=== PATIENT | male | born 1955 | race Caucasian/White ===

== ENCOUNTER 2021-07-02 02:12 | Observation (INO) ==
[2021-07-02] MEDS ORDERED: Acetaminophen 325 MG TABLET PO PRN (08:52)
[2021-07-02] MEDS ORDERED: Ondansetron 4 MG/2 ML VIAL IVP PRN (08:52)
[2021-07-02] MEDS ORDERED: Melatonin 3 MG TABLET PO PRN (08:52)
[2021-07-02] MEDS ORDERED: Naloxone 0.4 MG/ML INJ IVP PRN (08:52)
[2021-07-02] MEDS ORDERED: Mag Hydrox/Al Hydrox/Simeth 30 ML UDC PO PRN (08:52)
[2021-07-02 09:45] LABS: Basophils % 0.4 %; Eosinophils # 0.1 K/mcL (0.0-0.6); Hemoglobin 16.4 g/dL (12.9-16.9); Immature Granulocytes % 0.4 % (0-4); Lymphocytes # 1.9 K/mcL (0.6-4.6); Lymphocytes % 16.5 %; Mean Corpuscular HGB Conc 34.9 g/dL (31.6-35.5); Mean Corpuscular Hemoglobin 32.2 pg (28.0-33.3); Mean Corpuscular Volume 92.3 fL (83.0-100.0); Mean Platelet Volume 9.9 fL (9.4-12.4); Monocytes # 0.9 K/mcL (0.0-1.3); Monocytes % 7.6 %; Neutrophils # 8.3 K/mcL (1.6-8.9); Platelet Count 199 K/mcL (140-400); Red Blood Count 5.09 M/mcL (4.19-5.50); Red Cell Distribution Width 13.3 % (11.5-14.5); Segmented Neutrophils % 74.1 %; White Blood Count 11.3 K/mcL (4.3-11.1)
[2021-07-02 09:55] LABS: INR 1.2; Prothrombin Time 12.9 Seconds (9.4-12.1)
[2021-07-02 09:58] LABS: Activated Partial Thrombo Time 32.5 Seconds (26.0-36.0)
[2021-07-02] MEDS ORDERED: Aspirin 325 MG TABLET PO ONE (10:01)
[2021-07-02] MEDS ORDERED: Perflutren Lipid Microsphere 1.3 ML in 0.9 % Sodium Chloride 8.7 ML IVP PRN (10:03)
[2021-07-02 10:12] LABS: BUN/Creatinine Ratio 20 (6-26); Blood Urea Nitrogen 18 mg/dL (8-23); Calcium 9.8 mg/dL (8.6-10.3); Carbon Dioxide 27 mEq/L (23-29); Chloride 101 mEq/L (98-107); Glucose 115 mg/dL (70-105); Osmolality,Calculated 287 (280-300); Potassium 4.1 mEq/L (3.5-5.1); Sodium 137 mEq/L (136-145); eGFR For African Americans > 60 (> 60); eGFR For Non-African Americans > 60 (> 60)
[2021-07-02 10:16] LABS: Chol/HDL Ratio 4.9 (0-4.9); Cholesterol 190 mg/dL (< 200); HDL Cholesterol 39 mg/dL (40-59); LDL Cholesterol,Calculated 125 mg/dL (< 100); Magnesium 2.2 mg/dL (1.6-2.6); Phosphorous 3.4 mg/dL (2.7-4.5); Triglycerides 130 mg/dL (< 150); Troponin I < 0.03 ng/mL (< 0.04)
[2021-07-02] MEDS: amLODIPine 5 MG TABLET PO SCH (10:25)
[2021-07-02 10:42] LABS: Estimated Average Glucose 137 mg/dl; Hemoglobin A1C 6.4 %
[2021-07-02 10:49] LABS: Thyroid Stimulating Hormone 2.306 mcIU/mL (0.340-5.600)
[2021-07-02] MEDS: niCARdipine 20 MG/200 ML MLS IVC SCH ×4 (12:02→23:16)
[2021-07-02] MEDS: *HR* Heparin 5,000 UNIT/ML VIAL SQ SCH ×2 (14:40→21:29)
[2021-07-02] MEDS ORDERED: Gadolinium Contrast Agent (WT Based) IV PRN (21:48)
[2021-07-03] MEDS: niCARdipine 20 MG/200 ML MLS IVC SCH ×6 (07:10→21:12)
[2021-07-03] MEDS: *HR* Heparin 5,000 UNIT/ML VIAL SQ SCH ×3 (07:10→21:07)
[2021-07-03] MEDS: amLODIPine 5 MG TABLET PO SCH (07:11)
[2021-07-03] MEDS: Aspirin 81 MG TAB.CHEW PO SCH (08:27)
[2021-07-03] MEDS ORDERED: Isovue-370 500 ML BOTTLE IVP ONE (11:37)
[2021-07-04] MEDS: niCARdipine 20 MG/200 ML MLS IVC SCH (01:59)
[2021-07-04 02:04] LABS: BUN/Creatinine Ratio 23 (6-26); Blood Urea Nitrogen 22 mg/dL (8-23); Calcium 9.4 mg/dL (8.6-10.3); Carbon Dioxide 26 mEq/L (23-29); Chloride 101 mEq/L (98-107); Glucose 124 mg/dL (70-105); Osmolality,Calculated 283 (280-300); Potassium 3.9 mEq/L (3.5-5.1); Sodium 134 mEq/L (136-145); eGFR For African Americans > 60 (> 60); eGFR For Non-African Americans > 60 (> 60)
[2021-07-04 02:11] LABS: Basophils # 0.1 K/mcL (0.0-0.2); Basophils % 0.7 %; Eosinophils # 0.5 K/mcL (0.0-0.6); Eosinophils % 4.1 %; Hematocrit 45.9 % (37.5-50.1); Hemoglobin 15.9 g/dL (12.9-16.9); Immature Granulocytes % 0.4 % (0-4); Lymphocytes # 3.3 K/mcL (0.6-4.6); Lymphocytes % 27.6 %; Mean Corpuscular HGB Conc 34.6 g/dL (31.6-35.5); Mean Corpuscular Hemoglobin 31.8 pg (28.0-33.3); Mean Corpuscular Volume 91.8 fL (83.0-100.0); Mean Platelet Volume 9.9 fL (9.4-12.4); Monocytes # 0.9 K/mcL (0.0-1.3); Monocytes % 7.5 %; Neutrophils # 7.1 K/mcL (1.6-8.9); Platelet Count 199 K/mcL (140-400); Red Cell Distribution Width 13.2 % (11.5-14.5); Segmented Neutrophils % 59.7 %; White Blood Count 11.8 K/mcL (4.3-11.1)
[2021-07-04 04:02] VITALS: TEMP 98.1
[2021-07-04] MEDS: *HR* Heparin 5,000 UNIT/ML VIAL SQ SCH (04:26)
[2021-07-04 06:59] VITALS: O2SAT 96
[2021-07-04] MEDS: Aspirin 81 MG TAB.CHEW PO SCH (08:04)
[2021-07-04] MEDS ORDERED: Cyanocobalamin (B-12) 1,000 MCG TABLET PO SCH (09:00)
[2021-07-04] MEDS ORDERED: amLODIPine 5 MG TABLET PO SCH (09:00)
[2021-07-04 11:09] VITALS: BP 142/92; PULSE 70
[2021-07-05] MEDS ORDERED: Lisinopril-HCTZ 20-12.5mg TABLET PO SCH (09:00)
[2021-07-05] MEDS ORDERED: amLODIPine 5 MG TABLET PO SCH (09:00)
== END 2021-07-04 13:48 | disposition home or self-care (01) ==
LOC: 3NENU
PROVIDERS: ADMIT Student in an Organized Health Care Education/Training Program; ATTEND Student in an Organized Health Care Education/Training Program